=== PATIENT | male | born 1970 | race Hispanic/Latino ===

== ENCOUNTER 2020-06-15 09:41 | Emergency (ER) | payer BC, OTHER ==
[2020-06-15] MEDS ORDERED: ACETAMINOPHEN EXTRA STRENGTH 500 MG TABLET ONE (10:06)
[2020-06-15] MEDS ORDERED: IBUPROFEN 600 MG TABLET ONE (10:06)
== END 2020-06-15 11:25 | disposition home or self-care (01) ==
LOC: EDH 09:41
DX: S16.1XXA Strain of muscle, fascia and tendon at neck level, initial encounter (principal); S29.012A Strain of muscle and tendon of back wall of thorax, initial encounter; M79.601 Pain in right arm; V49.09XA Driver injured in collision with other motor vehicles in nontraffic accident, initial encounter; Y93.89 Activity, other specified; Y92.488 Other paved roadways as the place of occurrence of the external cause; Y99.8 Other external cause status
CPT/HCPCS: 70450; 72125; 72128; 73060